=== PATIENT | male | born 1955 | race Caucasian/White ===

== ENCOUNTER 2023-07-11 16:55 | Inpatient (IN) | payer MEDICARE, OTHER ==
[~2023-07-11] VITALS: Ht 170.2 cm; Wt 73.3 kg
[2023-07-11] MEDS ORDERED: LITH300C PO (17:08)
[2023-07-11 17:56] LABS: HEMATOCRIT 44.4 % (42.0-52.0); HEMOGLOBIN 14.2 g/dl (13.5-17.5); MEAN CORPUSCULAR HEMOGLOBIN 29.3 pg (27.0-33.0); MEAN CORPUSCULAR VOLUME 91.7 fl (80.0-96.0); PLATELET COUNT, AUTOMATED 408 10^3/uL (150-450); RED BLOOD COUNT 4.84 10^6/uL (4.30-6.10)
[2023-07-11 18:23] LABS: ETHYL ALCOHOL (ETHANOL) < 0.003 % (0.000-0.010); SALICYLATE LEVEL < 3.0 MG/DL (<30)
[2023-07-11 18:24] LABS: ALBUMIN 4.1 G/DL (3.2-5.2); ALKALINE PHOSPHATASE 123 U/L (46-116); ALT/SGPT 18 U/L (7.0-40); AST/SGOT 21 U/L (<34); BILIRUBIN,DIRECT 0.2 MG/DL (<0.4); BILIRUBIN,TOTAL 0.5 MG/DL (0.3-1.2); BLOOD UREA NITROGEN 13 MG/DL (9-23); CALCIUM LEVEL 9.9 MG/DL (8.3-10.6); CARBON DIOXIDE LEVEL 24 MMOL/L (20-31); CHLORIDE LEVEL 109 MMOL/L (98-107); CREATININE FOR GFR 0.94 MG/DL (0.70-1.30); GLOMERULAR FILTRATION RATE > 60.0 (>49); GLUCOSE, FASTING 89 MG/DL (74-106); POTASSIUM SERUM 4.5 MMOL/L (3.5-5.1); SODIUM LEVEL 140 MMOL/L (136-145); TOTAL PROTEIN 7.4 G/DL (5.7-8.2)
[2023-07-11 18:25] LABS: LITHIUM LEVEL 0.44 MMOL/L (1.0-1.20)
[2023-07-11 18:27] LABS: THYROID STIMULATING HORMONE 0.433 uIU/ML (0.55-4.78)
[2023-07-11 19:31] LABS: AMPHETAMINES LEVEL URINE NEGATIVE (NEGATIVE); BARBITURATES URINE NEGATIVE (NEGATIVE); BENZODIAZEPINES URINE NEGATIVE (NEGATIVE); COCAINE METABOLITE URINE NEGATIVE (NEGATIVE); METHADONE URINE NEGATIVE (NEGATIVE); OPIATES URINE NEGATIVE (NEGATIVE); PHENCYCLIDINE URINE NEGATIVE (NEGATIVE)
[2023-07-11 19:33] LABS: CANNABINOIDS URINE POSITIVE (NEGATIVE)
[2023-07-11] MEDS ORDERED: IBUPROFEN 400MG TAB PO PRN (21:45)
[2023-07-11] MEDS ORDERED: diphenhydrAMINE 25MG CAP PO PRN (21:45)
[2023-07-11] MEDS ORDERED: MAALOX 30 ML SUSP *UDC PO PRN (21:45)
[2023-07-11] MEDS: traZODone 50 MG TAB PO PRN (23:28)
[2023-07-12 00:37] VITALS: BP 136/94; TEMP 98.5; O2SAT 97
[2023-07-12 06:29] VITALS: BP 118/66; TEMP 97.7; O2SAT 97
[2023-07-12] MEDS ORDERED: LITH150C PO (13:53)
[2023-07-12] MEDS ORDERED: HOME MED LIST COMPLETE! XX SCH (13:55)
[2023-07-12 16:02] VITALS: BP 140/66; TEMP 97.3; O2SAT 99
[2023-07-12] MEDS: LITHIUM CARBONATE 300 MG CAP PO SCH (20:17)
[2023-07-12] MEDS: BREXPIPRAZOLE 0.5MG TABLET (REXULTI) PO SCH (20:17)
[2023-07-13 06:09] VITALS: BP 115/81; TEMP 98.3; O2SAT 97
[2023-07-13 07:27] LABS: CHOLESTEROL RISK RATIO 4.65 (<5); LDL CHOLESTEROL 90.6 MG/DL (<100)
[2023-07-13] MEDS: NICOTINE 14 MG/24 HR TRANSDERMAL TD SCH (09:27)
[2023-07-13] MEDS: LIDOCAINE 5% (LIDODERM) PATCH TD SCH (18:21)
[2023-07-13 18:39] VITALS: BP 135/84; TEMP 98.7; O2SAT 98
[2023-07-13 20:53] VITALS: BP 124/82
[2023-07-13] MEDS: PRAZOSIN 1 MG CAP PO SCH (20:56)
[2023-07-13] MEDS: ACETAMINOPHEN TAB 650MG DOSE (2X325MG) PO PRN (21:23)
[2023-07-14 06:32] VITALS: BP 121/64; TEMP 98.4; O2SAT 97
[2023-07-14 15:53] VITALS: BP 119/67; TEMP 98.3; O2SAT 100
[2023-07-14] MEDS: LITHIUM CARBONATE 150 MG CAP PO SCH (20:16)
[2023-07-14] MEDS: QUEtiapine FUMARATE 25 MG TAB PO PRN (22:01)
[2023-07-15 06:14] VITALS: BP 126/80; TEMP 97.9; O2SAT 99
[2023-07-15] MEDS: MOM 30ML SUSPENSION UDC PO PRN (17:05)
[2023-07-15 18:00] VITALS: BP 131/88; TEMP 97.1; O2SAT 100
[2023-07-16 18:00] VITALS: BP 129/80; TEMP 97.9; O2SAT 100
[2023-07-16 20:08] VITALS: BP 146/87
[2023-07-16] MEDS: CALCIUM CARBONATE 500 MG CHEW U/D PO PRN (23:23)
[2023-07-17 06:07] VITALS: BP 111/74; TEMP 97.2; O2SAT 95
[2023-07-17] MEDS: MIRALAX *UNIT DOSE* 17GM PACKET PO PRN (12:38)
[2023-07-17 18:54] VITALS: BP 130/81; TEMP 97.5
[2023-07-17 20:28] VITALS: BP 132/77
[2023-07-17] MEDS: LITHIUM CARBONATE 300 MG CAP PO SCH (20:30)
[2023-07-18 06:07] VITALS: BP 99/75; TEMP 97.3; O2SAT 100
[2023-07-18 09:41] LABS: LITHIUM LEVEL 0.5 MMOL/L (1.0-1.20)
[2023-07-18 11:26] LABS: THYROID STIMULATING HORMONE 0.405 uIU/ML (0.55-4.78)
[2023-07-18 11:28] LABS: FREE THYROXINE INDEX 2.7 % (1.4-3.8); T UPTAKE 37.9 % (22.5-37.0)
[2023-07-18 16:30] VITALS: BP 126/83; TEMP 97.1
[2023-07-18] MEDS: ACETAMINOPHEN 500 MG TAB PO PRN (17:28)
[2023-07-19 06:27] VITALS: BP 146/88; TEMP 97.4; O2SAT 95
[2023-07-19 18:27] VITALS: BP 127/81; TEMP 97.8
[2023-07-20 06:00] VITALS: BP 105/73; TEMP 97.4; O2SAT 99
[2023-07-20 17:12] VITALS: BP 120/72; TEMP 97.5; O2SAT 98
[2023-07-20 20:04] VITALS: BP 153/88
[2023-07-20 20:06] VITALS: BP 153/88
[2023-07-21 06:53] VITALS: BP 114/77; TEMP 97.3; O2SAT 100
[2023-07-21] MEDS ORDERED: PRAZ1CAP PO (09:07)
[2023-07-21] MEDS ORDERED: TRAZ-252 PO (09:07)
[2023-07-21] MEDS ORDERED: LIDO5TD TD (09:07)
[2023-07-21] MEDS ORDERED: NICO14PA TD (09:07)
[2023-07-21] MEDS ORDERED: QUET1TAB17 PO (09:07)
[2023-07-21] MEDS ORDERED: REXU1TAB2 PO (09:07)
[2023-07-21] MEDS ORDERED: LITH600C PO (09:07)
[2023-07-21] MEDS ORDERED: LIDO1CRE2 TOP (09:09)
== END 2023-07-21 10:57 | disposition home or self-care (01) | DRG 885 ==
LOC: M ED 16:55 → M ED INP 21:42 → M PSY 22:31
PROVIDERS: ADMIT Student in an Organized Health Care Education/Training Program; ATTEND Student in an Organized Health Care Education/Training Program
DX: F31.5 Bipolar disorder, current episode depressed, severe, with psychotic features (principal); R45.851 Suicidal ideations; Z59.00 Homelessness unspecified; F43.10 Post-traumatic stress disorder, unspecified; F12.90 Cannabis use, unspecified, uncomplicated; J32.9 Chronic sinusitis, unspecified; F17.210 Nicotine dependence, cigarettes, uncomplicated; E07.9 Disorder of thyroid, unspecified; Z56.0 Unemployment, unspecified; Z63.5 Disruption of family by separation and divorce; Z90.5 Acquired absence of kidney; Z85.528 Personal history of other malignant neoplasm of kidney; Z79.899 Other long term (current) drug therapy; Z88.0 Allergy status to penicillin; Z91.51 Personal history of suicidal behavior

== ENCOUNTER 2023-12-27 13:38 | Inpatient (IN) | payer MEDICARE ==
[~2023-12-27] VITALS: Ht 170.2 cm; Wt 71.9 kg
[~2023-12-27 13:38] MED LIST: LIDO4CRE12 TOP; LIDO5TD TD; LITH150C PO; LITH300C PO; LITH600C PO; NICO14PA TD; PRAZ1CAP PO; QUET1TAB17 PO; REXU1TAB2 PO; TRAZ-252 PO
[2023-12-27 14:50] LABS: HEMATOCRIT 44.4 % (42.0-52.0); HEMOGLOBIN 14.3 g/dl (13.5-17.5); MEAN CORPUSCULAR HEMOGLOBIN 28.2 pg (27.0-33.0); MEAN CORPUSCULAR HGB CONC 32.2 g/dl (32.0-36.5); MEAN CORPUSCULAR VOLUME 87.6 fl (80.0-96.0); PLATELET COUNT, AUTOMATED 324 10^3/uL (150-450); RED BLOOD COUNT 5.07 10^6/uL (4.30-6.10); WHITE BLOOD COUNT 9.3 10^3/uL (4.0-10.0)
[2023-12-27 15:12] LABS: ETHYL ALCOHOL (ETHANOL) < 0.003 % (0.000-0.010)
[2023-12-27 15:14] LABS: ALBUMIN 3.9 G/DL (3.2-5.2); ALKALINE PHOSPHATASE 99 U/L (40-129); ALT/SGPT 19 U/L (7.0-40); AST/SGOT 25 U/L (<34); BILIRUBIN,DIRECT 0.2 MG/DL (<0.4); BILIRUBIN,TOTAL 0.7 MG/DL (0.3-1.2); BLOOD UREA NITROGEN 13 MG/DL (9-23); CARBON DIOXIDE LEVEL 22 MMOL/L (20-31); CHLORIDE LEVEL 106 MMOL/L (98-107); CREATININE FOR GFR 0.79 MG/DL (0.70-1.30); GLOMERULAR FILTRATION RATE > 60.0 (>49); GLUCOSE, FASTING 82 MG/DL (74-106); POTASSIUM SERUM 4.4 MMOL/L (3.5-5.1); SALICYLATE LEVEL < 3.0 MG/DL (<30); SODIUM LEVEL 138 MMOL/L (136-145); TOTAL PROTEIN 7.7 G/DL (5.7-8.2)
[2023-12-27 15:15] LABS: THYROID STIMULATING HORMONE 0.093 uIU/ML (0.55-4.78)
[2023-12-27] MEDS ORDERED: ACETAMINOPHEN 325 MG TAB PO PRN (16:35)
[2023-12-27] MEDS ORDERED: MOM 30ML SUSPENSION UDC PO PRN (16:35)
[2023-12-27] MEDS ORDERED: IBUPROFEN 400MG TAB PO PRN (16:35)
[2023-12-27 16:37] LABS: AMPHETAMINES LEVEL URINE NEGATIVE (NEGATIVE); BENZODIAZEPINES URINE NEGATIVE (NEGATIVE); PHENCYCLIDINE URINE NEGATIVE (NEGATIVE)
[2023-12-27 16:38] LABS: BARBITURATES URINE NEGATIVE (NEGATIVE); COCAINE METABOLITE URINE NEGATIVE (NEGATIVE); METHADONE URINE NEGATIVE (NEGATIVE); OPIATES URINE NEGATIVE (NEGATIVE)
[2023-12-27 16:39] LABS: CANNABINOIDS URINE POSITIVE (NEGATIVE)
[2023-12-27] MEDS ORDERED: TRAZ1TAB10 PO (16:41)
[2023-12-27] MEDS ORDERED: LITH600C PO (16:41)
[2023-12-27] MEDS ORDERED: HOME MED LIST COMPLETE! XX SCH (16:45)
[2023-12-27 17:41] VITALS: BP 153/88; TEMP 97.8; O2SAT 98
[2023-12-27] MEDS: ACETAMINOPHEN 500 MG TAB PO PRN (20:38)
[2023-12-28 06:23] VITALS: BP 117/68; TEMP 97.5; O2SAT 96
[2023-12-28 14:46] VITALS: BP 135/88; TEMP 98.1; O2SAT 96
[2023-12-28] MEDS: FLUBLOK(EGGFREE) TRIVAL(24-25) VACCINE PF 0.5ML SYRINGE 18YRS & OLDER IM.IMMUN ONE (15:43)
[2023-12-28 17:47] LABS: FREE T4 1.18 NG/DL (0.89-1.76)
[2023-12-28] MEDS: DIVALPROEX 250MG *ER* TAB PO SCH (21:09)
[2023-12-29 06:31] VITALS: BP 147/88; TEMP 98.4; O2SAT 98
[2023-12-29 16:27] VITALS: BP 138/90; TEMP 97.7; O2SAT 98
[2023-12-29] MEDS: ACETAMINOPHEN 325 MG TAB PO PRN (16:42)
[2023-12-30 06:24] VITALS: BP 140/85; TEMP 97.9; O2SAT 96
[2023-12-30] MEDS: ANALGESIC BALM CRM 3OZ TOP PRN (14:57)
[2023-12-30 15:09] VITALS: BP 135/77; TEMP 98.8; O2SAT 100
[2023-12-31 06:22] VITALS: BP 134/97; TEMP 97.9; O2SAT 97
[2023-12-31 16:03] VITALS: BP 125/83; TEMP 98.2; O2SAT 98
[2024-01-01 06:38] VITALS: BP 134/84; TEMP 98; O2SAT 96
[2024-01-01] MEDS: MAALOX 30 ML SUSP *UDC PO PRN (11:01)
[2024-01-01 12:01] VITALS: BP 127/87; TEMP 97.6; O2SAT 98
[2024-01-01 14:45] VITALS: BP 139/73; TEMP 98.6; O2SAT 98
[2024-01-01] MEDS: traZODone 50 MG TAB PO PRN (20:50)
[2024-01-01] MEDS: diphenhydrAMINE 25MG CAP PO PRN (20:50)
[2024-01-01] MEDS: DIVALPROEX 250MG *ER* TAB PO SCH (20:50)
[2024-01-02 06:44] VITALS: BP 130/70; TEMP 97.4; O2SAT 97
[2024-01-02 14:56] VITALS: BP 130/81; TEMP 98.4; O2SAT 97
[2024-01-02] MEDS: DIVALPROEX 250MG *ER* TAB PO SCH (21:01)
[2024-01-03 06:02] VITALS: BP 138/70; TEMP 97.2; O2SAT 98
[2024-01-03 14:43] VITALS: BP 132/81; TEMP 98.3; O2SAT 100
[2024-01-04 06:38] VITALS: BP 118/77; TEMP 98.2; O2SAT 98
[2024-01-04 17:07] VITALS: BP 134/78; TEMP 96.9; O2SAT 98
[2024-01-05 06:27] VITALS: BP 128/74; TEMP 97.6; O2SAT 96
[2024-01-05 15:09] VITALS: BP 140/74; TEMP 98.7; O2SAT 98
[2024-01-06 06:13] VITALS: BP 140/81; TEMP 98.6; O2SAT 97
[2024-01-06] MEDS: LIDOCAINE 5% (LIDODERM) PATCH TD SCH (09:57)
[2024-01-06 15:29] VITALS: BP 141/90; TEMP 98.3; O2SAT 96
[2024-01-07 06:17] VITALS: BP 134/83; TEMP 98; O2SAT 100
[2024-01-07 15:07] VITALS: BP 131/88; TEMP 98.9; O2SAT 99
[2024-01-08 06:17] VITALS: BP 123/79; TEMP 98; O2SAT 96
[2024-01-08 15:33] VITALS: BP 148/84; TEMP 98.4; O2SAT 97
[2024-01-09 06:18] VITALS: BP 121/72; TEMP 96.8; O2SAT 97
[2024-01-09] MEDS ORDERED: DIPH-435 PO (11:52)
[2024-01-09] MEDS ORDERED: DEPA250T2 PO (11:52)
== END 2024-01-09 15:00 | disposition home or self-care (01) | DRG 885 ==
LOC: M ED 13:38 → M ED INP 16:35 → M PSY 17:42
PROVIDERS: ADMIT Psychiatry & Neurology Psychiatry; ATTEND Psychiatry & Neurology Psychiatry
DX: F31.9 Bipolar disorder, unspecified (principal); R45.851 Suicidal ideations; Z79.899 Other long term (current) drug therapy; Z88.0 Allergy status to penicillin; F12.90 Cannabis use, unspecified, uncomplicated; F41.9 Anxiety disorder, unspecified; Z62.810 Personal history of physical and sexual abuse in childhood; Z91.148 Patient's other noncompliance with medication regimen for other reason